=== PATIENT | female | born 1995 | race Caucasian/White ===

== ENCOUNTER 2017-03-21 16:47 | Observation (INO) | payer BC ==
[~2017-03-21] VITALS: Ht 165.1 cm; Wt 119.0 kg
--- NOTE | ~2017-03-21 | HP ---
PATIENT'S NAME: JADE SHELTON [facility] AGE: 22 Y [address] ROOM: [place] [address] LOCATION: [facility] ADMIT DATE: 03/21/2017 History & Physical DISCHARGE DATE: 03/21/2017 FAMILY PHYSICIAN: Moe Garcia MD ATTENDING PHYSICIAN: Moe Garcia DATE OF SERVICE: 03/21/2017 CHIEF COMPLAINT: Contractions. HISTORY OF PRESENT ILLNESS: The patient is a 22-year-old, G1 with intrauterine at 40 and 0 who started feeling contractions and thinks she lost her mucus plug. The patient denies any loss of fluids or bleeding and is feeling baby move. PAST MEDICAL HISTORY: Reviewed. OBJECTIVE: VITAL SIGNS: Stable. GENERAL: The patient is alert and oriented, appears in no acute distress. HEENT: Head: Normocephalic and atraumatic. Eyes: Conjunctivae are clear. No scleral icterus. Mouth and oropharynx: Mucosa moist and pink. No lesions or exudates. NECK: Supple. No lymphadenopathy or thyromegaly. HEART: Regular rate and rhythm. No rubs, murmurs, or gallops. LUNGS: Clear to auscultation bilaterally. ABDOMEN: Gravid. heart tones 150, is reactive. Tocometer shows every 12 minutes contraction and cervix is 1-2 cm and unchanged from initial check. ASSESSMENT: A 22-year-old, G1 with intrauterine at 40 and 0 days. PLAN: At this time, we will send the patient home with labor precautions. We will have her follow up in 2 days for induction. The patient voiced understanding. MD VIGNESH SCHREIBERG/kevonl PATIENT'S NAME: JADE SHELTON [facility] AGE: 22 Y [address] ROOM: [place] [address] LOCATION: [facility] ADMIT DATE: 03/21/2017 History & Physical DISCHARGE DATE: 03/21/2017 FAMILY PHYSICIAN: Moe Garcia MD ATTENDING PHYSICIAN: Moe Garcia /[id number] D: [id number] T: [id number] HISTORY & PHYSICAL
[~2017-03-21 16:47] MED LIST: PRENATAL 1+1)(P1 TAB PO
== END 2017-03-21 19:30 | disposition disaster alternative care site (69) ==
LOC: GOBM 16:47 → GOBS 16:47 → GOBM 16:50 → GOBS 19:30 → GOBM 19:30 → GOBS 19:30
PROVIDERS: ADMIT Family Medicine
DX: O47.1 False labor at or after 37 completed weeks of gestation (principal); Z3A.40 40 weeks gestation of pregnancy
CPT/HCPCS: G0463

== ENCOUNTER 2017-03-23 19:01 | Inpatient (IN) | payer BC ==
[~2017-03-23] VITALS: Ht 165.1 cm
--- NOTE | ~2017-03-23 | DS ---
PATIENT'S NAME: JADE SHELTON [facility] AGE: 22 Y [address] ROOM: [place] [address] LOCATION: [facility] ADMIT DATE: 03/23/2017 Discharge Summary DISCHARGE DATE: 03/27/2017 FAMILY PHYSICIAN: Moe Garcia MD ATTENDING PHYSICIAN: Moe Garcia DISCHARGE DIAGNOSIS: Primary due to meconium along with distress and arrest of descent. CONSULTS DURING ADMISSION: Carrie Mazariegos MD of [facility]. PROCEDURES DURING ADMISSION: Primary . HOSPITAL COURSE: The patient is a 22-year-old G1 with intrauterine at 40 weeks and 4 days who had an induction of labor with Pitocin and was found to be almost complete to just a rim but failure to progress and arrest of dilation. The patient's fetus also was having late decelerations and meconium. The patient was sent for Yellow Code Section and delivered male . course was unremarkable. Upon day of discharge, the patient was ambulating well, having bowel movements, urinating without difficulty and had a hemoglobin of 8.6. Pain was controlled with oral medications. DISCHARGE CONDITION: Stable. DISPOSITION: Home. DISCHARGE MEDICATIONS: Please see list. DISCHARGE INSTRUCTIONS: The patient was advised to contact clinic if she has a fever greater than 100.4, pain not controlled by pain medicines, bleeding greater than 1 pad per hour, any redness, warmth or abnormal discomfort of the breast, or any concerns. The patient is not to drive while on narcotics. The patient is not to lift anything greater than 10 pounds per surgeon's advice. The patient is to follow up with surgeon at approximate time and with Radha in 6 weeks. MD LYLE SCHREIBER/vinicio PATIENT'S NAME: JADE SHELTON [facility] AGE: 22 Y [address] ROOM: [place] [address] LOCATION: [facility] ADMIT DATE: 03/23/2017 Discharge Summary DISCHARGE DATE: 03/27/2017 FAMILY PHYSICIAN: Moe Garcia MD ATTENDING PHYSICIAN: Moe Garcia /[id number] d: 04/02/17805 t: 04/13/17 1015, DISCHARGE SUMMARY
--- NOTE | ~2017-03-23 | HP ---
PATIENT'S NAME: JADE SHELTON [facility] AGE: 22 Y [address] ROOM: [place] [address] LOCATION: [facility] ADMIT DATE: 03/23/2017 History & Physical DISCHARGE DATE: FAMILY PHYSICIAN: Moe Garcia MD ATTENDING PHYSICIAN: Moe Garcia DATE OF SERVICE: CHIEF COMPLAINT: Induction of labor. HISTORY OF PRESENT ILLNESS: The patient is a 22-year-old G1, P0 with an intrauterine of 40 weeks and 3 days, who presented for induction of labor. The patient was found to be 3 to 4 cm on arrival, and an epidural was placed, and she had artificial rupture of membranes, which were clear. The patient then was augmented with Pitocin and had this stopped due to late decels. After couple of hours, Pitocin was restarted and fetus started having late decels again and it was stopped. The patient was approximately and we attempted pushes. The patient had late decels with pushes and the Pitocin off. It was also noted that then had meconium. PAST MEDICAL HISTORY: No significant past medical history. MEDICATIONS: vitamin 1 tablet p.o. daily. PAST SURGICAL HISTORY: None. ALLERGIES: NO KNOWN MEDICAL ALLERGIES. FAMILY HISTORY: Noncontributory. SOCIAL HISTORY: The patient denies any tobacco, alcohol, or illicit drug use. REVIEW OF SYSTEMS: A complete review of systems obtained, pertinent positives and negatives as mentioned in the HPI. OBJECTIVE: PATIENT'S NAME: JADE SHELTON [facility] AGE: 22 Y [address] ROOM: [place] [address] LOCATION: [facility] ADMIT DATE: 03/23/2017 History & Physical DISCHARGE DATE: FAMILY PHYSICIAN: Moe Garcia MD ATTENDING PHYSICIAN: Moe Garcia VITAL SIGNS: Stable. GENERAL: The patient is alert and oriented. Appears in no acute distress with epidural placed. HEENT: Head normocephalic, atraumatic. Eyes: conjunctivae clear. No scleral icterus. Mouth: Oropharynx grossly moist and pink. No lesions or exudates. NECK: Supple. No lymphadenopathy or thyromegaly. HEART: Regular rate and rhythm. No rubs, murmurs, or gallops. LUNGS: Clear to auscultation bilaterally. ABDOMEN: Gravid. heart tones 150, is reactive. Tocometer shows contractions every 2 to 5. Cervix is and zero station. EXTREMITIES: No cyanosis, clubbing, or edema. VASCULAR: Pulses are +2 and equal bilaterally. SKIN: No rash or lesions. LYMPHATICS: No lymphadenopathy. NEURO: Cranial nerves 2 through 12 grossly intact. ASSESSMENT: 1. Arrest of descent, failed induction with Pitocin. 2. Meconium. 3. Late decels. PLAN: The patient was also found to be GBS positive, was given penicillin. I consulted [employer] at this time. With all the factors involved, we will do a C- section code yellow with Dr. Mazariegos. MD LYLE SCHREIBER/vinicio /[id number] D: T: HISTORY & PHYSICAL
--- NOTE | ~2017-03-23 | CON ---
PATIENT'S NAME: JADE SHELTON [facility] AGE: 22 Y [address] ROOM: [place] [address] LOCATION: [facility] ADMIT DATE: 03/23/2017 Consultation DISCHARGE DATE: FAMILY PHYSICIAN: Moe Garcia MD ATTENDING PHYSICIAN: Moe Garcia This is a consultation on this 22-year-old 1, who is a patient of Dr. Garcia. She got to complete and pushing, but was having some early and late decelerations. The patient has consented for section. She understands surgical risks to include, but not limited to, bleeding, transfusion, infection, injury to other organs, and need for additional surgery. Appropriate consents are signed and witnessed. MD LIMA ARZOLA/vinicio /[id number] d: 03/24/17 1012 t: 03/27/17 0857, CONSULTATION REPORT
--- NOTE | ~2017-03-23 | OR ---
PATIENT'S NAME: JADE SHELTON [facility] AGE: 22 Y [address] ROOM: [place] [address] LOCATION: [facility] ADMIT DATE: 03/23/2017 OR/Procedure Report DISCHARGE DATE: FAMILY PHYSICIAN: Moe Garcia MD ATTENDING PHYSICIAN: Moe Garcia SURGEON: Carrie Mazariegos MD [employer] PLANT OPERATOR: Moe Garcia M.D. DATE OF PROCEDURE: 03/24/2017 PREOPERATIVE DIAGNOSES: 1. Intrauterine at term. 2. Arrest of descent. 3. Meconium-stained fluid. POSTOPERATIVE DIAGNOSES: 1. Intrauterine at term. 2. Arrest of descent. 3. Meconium-stained fluid. PROCEDURE: Primary low transverse section. BLOOD LOSS: 500 mL. ANESTHESIA: Epidural. COMPLICATIONS: None. DESCRIPTION OF PROCEDURE: The patient was taken to the operating room and a verbal time-out was undertaken. She had been consented, and understands the risks of surgery to include, but not limited to, bleeding, transfusion, infection, injury to other organs including bowel, bladder, blood vessels, and ureters and need for additional surgery. Appropriate consents had been signed and witnessed. A Pfannenstiel skin incision was made after the patient was prepped and draped. This was carried down to the level of fascia. The fascia was nicked in the midline. The incision was carried out laterally, and the fascia was sharply and bluntly dissected from the underlying rectus muscles. The peritoneum was opened sharply and incised and stretched. A bladder blade was placed. The bladder reflection was taken down sharply. A low transverse uterine incision was made with a knife. The vertex was grasped and delivered over the uterine incision. Shoulders and body were easily delivered. Baby boy lets out a spontaneous cry. His mouth and nares were suctioned. Thick meconium-stained fluid was noted. Cord was doubly clamped and cut. He was quickly handed off to Dr. Rhodes from Pediatrics. Cord blood samples were collected. Placenta was delivered manually and intact. Placenta was sent to Pathology. The uterus was exteriorized. Tubes and ovaries looked normal. PATIENT'S NAME: JADE SHELTON [facility] AGE: 22 Y [address] ROOM: [place] [address] LOCATION: [facility] ADMIT DATE: 03/23/2017 OR/Procedure Report DISCHARGE DATE: FAMILY PHYSICIAN: Moe Garcia MD ATTENDING PHYSICIAN: Moe Garcia The uterine incision was closed in a running locking stitch of 0 chromic. A second imbricating stitch was performed. Baby boy weighed 6 pounds 10 ounces, scores of 8 and 9. A [id number] was needed for additional hemostasis on the uterus. The bladder reflection looks dry. The uterus was replaced within the peritoneal cavity. The peritoneum was closed with 2-0 Vicryl. The fascia was closed with 0 Vicryl and 4-0 Vicryl was used to close the skin. The patient tolerated the procedure well. I did do a 2-0 Vicryl closure of the subcu adipose too. The patient tolerated the procedure well. MD LIMA ARZOLA/modl /[id number] d: 03/24/17957 t: 03/27/17899, OPERATIVE SUMMARY
[2017-03-23 20:32] LABS: BASOPHIL % 0.1 %; EOSINOPHIL % 0.3 %; HEMATOCRIT 36.4 % (33.0-46.0); IMMATURE GRANULOCYTE % 0.2 %; LYMPHOCYTE # 2.3 K/uL (0.8-4.0); MCH 29.1 pg (27.0-34.0); MCV 88.1 fl (83.0-98.0); MONOCYTE # 0.8 K/uL (0.0-1.0); MONOCYTE % 6.2 %; NEUTROPHIL # (ANC) 9.6 K/uL (1.8-7.8); NEUTROPHIL % 75.2 %; NRBC % 0 /100WBC (0-0.00); PLATELET COUNT 188 K/uL (150-450); RBC 4.13 M/uL (3.50-5.00); RDW-CV 14.6 % (11.9-14.6); WBC 12.8 K/uL (4.0-11.0)
[2017-03-24 08:41] LABS: BICARBONATE 23.4 mmol/L (18.0-23.0); PCO2 50 mmHg (35-45); PO2 8 mmHg (80-90)
[2017-03-25 04:14] LABS: BASOPHIL % 0.1 %; EOSINOPHIL % 0.3 %; HEMOGLOBIN 8.6 g/dL (11.0-15.0); IMMATURE GRANULOCYTE # 0.1 K/uL (0.0-0.3); IMMATURE GRANULOCYTE % 0.4 %; LYMPHOCYTE # 2.1 K/uL (0.8-4.0); LYMPHOCYTE % 17.1 %; MCV 89.4 fl (83.0-98.0); MONOCYTE # 0.6 K/uL (0.0-1.0); MONOCYTE % 5.2 %; MPV 11.9 fl (9.4-12.4); NEUTROPHIL # (ANC) 9.3 K/uL (1.8-7.8); NEUTROPHIL % 76.9 %; NRBC % 0 /100WBC (0-0.00); RDW-CV 14.9 % (11.9-14.6); WBC 12.1 K/uL (4.0-11.0)
[2017-03-25 04:19] LABS: HEMATOCRIT 26.1 % (33.0-46.0); MCH 29.5 pg (27.0-34.0); PLATELET COUNT 124 K/uL (150-450); RBC 2.92 M/uL (3.50-5.00)
--- NOTE | 2017-03-25 06:13 | NUR ---
VSS. VOIDS WITHOUT DIFFICULTY. MICROFOAM TO INCISION REMAINS C/D/I. LAST HAD 1 PERCOCET AT 0540. FUNDUS FIRM, EVEN, SMALL FLOW.
--- NOTE | 2017-03-25 12:36 | NUR ---
Met with patient, significant other, and additional family today at bedside. I introduced myself and asked if this was a good time to visit with both parents said yes. I explained my role with the CM department. Patient and her significant other/FOB deny any needs or concerns with discharge. They indicate they have all the necessary items for baby at home. They have already notified insurance of Estrella's . Family denies any other needs. Will likely discharge tomorrow.
--- NOTE | 2017-03-26 19:10 | NUR ---
Significant Event: Follow up: VSS, hbg 8.6, from 12.0. Up ad andres, without vertigo. Medicated with motrin & percocet @ 1232, percocet 2) @ 0452. likes ice pk to inc. Plan home tomorrow.
[2017-03-27] MEDS ORDERED: SURFAK240 MG PO (10:28)
[2017-03-27] MEDS ORDERED: APNO TOP (10:29)
[2017-03-27] MEDS ORDERED: MOTRIN800 MG PO (10:30)
[2017-03-27] MEDS ORDERED: PERCOCET 5-3251 EACH PO (10:30)
== END 2017-03-27 14:15 | disposition disaster alternative care site (69) | DRG 766 ==
LOC: GOBS 19:01 → GOBM 19:01 → GOBS 19:02
PROVIDERS: ADMIT Family Medicine
DX: O48.0 Post-term pregnancy (principal); O99.824 Streptococcus B carrier state complicating childbirth; O77.0 Labor and delivery complicated by meconium in amniotic fluid; O64.8XX0 Obstructed labor due to other malposition and malpresentation, not applicable or unspecified; O76 Abnormality in fetal heart rate and rhythm complicating labor and delivery; Z3A.40 40 weeks gestation of pregnancy; Z37.0 Single live birth
CPT/HCPCS: J0456; J0690; J1885; J2001; J2405; J2540; J2590; J3010; J7120